=== PATIENT | female | born 1965 | race Native Hawaiian/Other Pacific Islander ===

== ENCOUNTER 2017-11-29 12:44 | Emergency (ER) | payer OTHER ==
[~2017-11-29] VITALS: Ht 157.5 cm; Wt 72.6 kg
[2017-11-29] MEDS ORDERED: GLIP10TA55 PO (12:57)
[2017-11-29] MEDS ORDERED: LISI10TA11 PO (12:57)
[2017-11-29] MEDS ORDERED: METFORMIN HYDR850 MG PO (12:57)
== END 2017-11-29 13:54 | disposition home or self-care (01) ==
LOC: ED 12:44
DX: R21 Rash and other nonspecific skin eruption (principal); L25.9 Unspecified contact dermatitis, unspecified cause
CPT/HCPCS: 96372; 99283; J2930

== ENCOUNTER 2018-05-14 09:47 | Outpatient (CLI) | payer OTHER ==
[~2018-05-14 09:47] MED LIST: GLIP10TA55 PO; LISI10TA11 PO; METFORMIN HYDR850 MG PO
== END 2018-05-14 23:12 | disposition home or self-care (01) ==
LOC: MAMMO 09:47
DX: Z12.31 Encounter for screening mammogram for malignant neoplasm of breast (principal)

== ENCOUNTER 2021-02-14 08:57 | Outpatient (CLI) | payer OTHER | END 2021-02-14 20:40 | disposition home or self-care (01) | LOC: RESP 08:57 → MRI 15:00 → RESP 20:40 | PROVIDERS: ATTEND Specialist | DX: G43.109 Migraine with aura, not intractable, without status migrainosus (principal); G81.90 Hemiplegia, unspecified affecting unspecified side; R55 Syncope and collapse ==

== ENCOUNTER 2021-05-15 11:35 | Outpatient (CLI) | payer OTHER | END 2021-05-15 19:25 | disposition home or self-care (01) | LOC: MAMMO 11:35 | PROVIDERS: ATTEND Nurse Practitioner Family | DX: Z12.31 Encounter for screening mammogram for malignant neoplasm of breast (principal) ==

== ENCOUNTER 2022-02-04 13:25 | Outpatient (CLI) | payer OTHER | END 2022-02-04 19:02 | disposition home or self-care (01) | LOC: RAD 13:25 | PROVIDERS: ATTEND Internal Medicine | DX: M85.88 Other specified disorders of bone density and structure, other site (principal) ==

== ENCOUNTER 2022-03-15 08:46 | Outpatient (CLI) | payer OTHER | END 2022-03-15 20:24 | disposition home or self-care (01) | LOC: US 08:46 | PROVIDERS: ATTEND Nurse Practitioner Family | DX: R11.2 Nausea with vomiting, unspecified (principal); R10.9 Unspecified abdominal pain; R19.7 Diarrhea, unspecified ==

== ENCOUNTER 2023-03-12 10:18 | Emergency (ER) | payer OTHER ==
[~2023-03-12] VITALS: Ht 157.5 cm; Wt 72.6 kg
[2023-03-12 10:25] VITALS: BP 145/87; TEMP 97.2
== END 2023-03-12 12:40 | disposition home or self-care (01) ==
LOC: ED 10:18
DX: K02.9 Dental caries, unspecified (principal)
CPT/HCPCS: 99282